=== PATIENT | female | born 1990 | race Two or more races ===

== ENCOUNTER 2017-01-14 17:09 | Emergency (ER) | payer SELFPAY ==
[~2017-01-14] VITALS: Ht 170.2 cm; Wt 70.8 kg
[2017-01-14 17:16] VITALS: BP 105/64
[2017-01-14] MEDS: LIDOCAINE HCL/PF 1% 30 ML VIAL TP ONE (18:11)
== END 2017-01-14 19:00 | disposition home or self-care (01) ==
LOC: ER 17:12
DX: L05.01 Pilonidal cyst with abscess (principal); F17.210 Nicotine dependence, cigarettes, uncomplicated
CPT/HCPCS: A4606; A6402; A6407; J3490; Z7610